=== PATIENT | male | born 1950 | race Caucasian/White ===

== ENCOUNTER 2025-01-22 17:07 | Inpatient (IN) ==
[2025-01-22] MEDS: 0.9 % SODIUM CHLORIDE 2,260 ML IV ONE (17:38)
[2025-01-22 17:47] LABS: Basophils # (Auto) 0.01 K/mcL (0.00-0.30); Basophils % (Auto) 0 % (0.0-2.0); Eosinophils # (Auto) 0 K/mcL (0.00-0.70); Eosinophils % (Auto) 0 % (0.0-7.0); Hematocrit 40.9 % (40.1-51.0); Hemoglobin 13.4 g/dL (13.7-17.5); Lymphocytes # (Auto) 0.66 K/mcL (1.50-4.80); Lymphocytes % (Auto) 3.3 % (15.5-49.0); Mean Corpuscular HGB Conc 32.8 g/dL (31.0-36.0); Monocytes # (Auto) 0.14 K/mcL (0.10-0.90); Monocytes % (Auto) 0.7 % (1.0-12.0); Neutrophils % (Auto) 95.8 % (38.0-78.0); Platelet Count 355 K/mcL (140-440); RBC 4.46 M/mcL (4.63-6.08); WBC 20.3 K/mcL (4.5-11.0)
[2025-01-22] MEDS: cefTRIAXone 2 GM in DEXTROSE 5% IN WATER 50 ML IV ONE (18:05)
[2025-01-22 18:12] LABS: Bacteria,Urine Mod /hpf (0); Bilirubin,Urine Negative (Negative); Color,Urine Yellow; Glucose,Urine (UA) Negative (Negative); Ketones,Urine Negative (Negative); Leukocyte Esterase,Urine Large /uL (Negative); PH,Urine 6.0 (5.0-9.0); Protein,Urine 30 mg/dL (Negative); Specific Gravity,Urine 1.020 (1.000-1.035); Urobilinogen,Urine Normal
[2025-01-22 18:12] LABS: ALT/SGPT 19 U/L (<40); AST/SGOT 23 U/L (<40); Albumin 3.5 gm/dL (3.2-5.2); Albumin/Globulin Ratio 1.1 (1.0-2.3); Alkaline Phosphatase 77 U/L (39-117); Anion Gap 17.0 (8.0-16.0); Bilirubin,Total 0.4 mg/dL (0.1-1.0); Blood Urea Nitrogen 26 mg/dL (8-23); Calcium 8.3 mg/dL (8.6-10.4); Carbon Dioxide 19 mmol/L (22-30); Chloride 101 mmol/L (96-108); Globulin 3.2 gm/dL (2.2-3.7); Glucose 167 mg/dL (70-105); Potassium 3.8 mmol/L (3.3-5.1); Sodium 137 mmol/L (133-145)
[2025-01-22] MEDS: MAGNESIUM SULFATE 2 GM/50 ML BAG IV ONE (18:47)
[2025-01-22] MEDS ORDERED: POLYETHYLENE GLYCOL 3350 17 GM PACKET PO PRN (21:29)
[2025-01-22] MEDS ORDERED: MAGNESIUM SULFATE 2 GM/50 ML BAG IV PRN (21:29)
[2025-01-22] MEDS ORDERED: POTASSIUM CHLORIDE 20 MEQ TABLET PO PRN ×2 (21:29)
[2025-01-22] MEDS ORDERED: SENNOSIDES 1 TABLET PO PRN (21:29)
[2025-01-22] MEDS ORDERED: METOCLOPRAMIDE 10 MG/2 ML VIAL IV PRN (21:29)
[2025-01-22] MEDS ORDERED: POTASSIUM CHLORIDE 40 MEQ in DEXTROSE 5% IN WATER 500 ML IV PRN (21:29)
[2025-01-22] MEDS: 0.9 % SODIUM CHLORIDE 10 ML SYRINGE IV SCH (21:45)
[2025-01-22] MEDS: 0.9 % SODIUM CHLORIDE 1,000 ML IV ONE (22:15)
[2025-01-22] MEDS: ENOXAPARIN 40 MG/0.4 ML SYRINGE SQ SCH (22:20)
[2025-01-22] MEDS: CEFEPIME 1 GM VIAL IV SCH (22:20)
[2025-01-22] MEDS: DOCUSATE SODIUM 100 MG CAPSULE PO SCH (22:20)
[2025-01-23] MEDS: ACETAMINOPHEN 325 MG TABLET PO PRN (02:43)
[2025-01-23 06:47] LABS: Basophils # (Auto) 0.02 K/mcL (0.00-0.30); Basophils % (Auto) 0.1 % (0.0-2.0); Eosinophils # (Auto) 0.04 K/mcL (0.00-0.70); Eosinophils % (Auto) 0.2 % (0.0-7.0); Hematocrit 38.3 % (40.1-51.0); Hemoglobin 12.2 g/dL (13.7-17.5); Lymphocytes # (Auto) 0.95 K/mcL (1.50-4.80); Lymphocytes % (Auto) 4.1 % (15.5-49.0); Mean Corpuscular HGB Conc 31.9 g/dL (31.0-36.0); Monocytes # (Auto) 0.45 K/mcL (0.10-0.90); Monocytes % (Auto) 1.9 % (1.0-12.0); Neutrophils % (Auto) 93.3 % (38.0-78.0); Platelet Count 291 K/mcL (140-440); RBC 4.04 M/mcL (4.63-6.08); WBC 23.4 K/mcL (4.5-11.0)
[2025-01-23 06:59] LABS: ALT/SGPT 14 U/L (<40); AST/SGOT 16 U/L (<40); Albumin 3.0 gm/dL (3.2-5.2); Albumin/Globulin Ratio 1.1 (1.0-2.3); Alkaline Phosphatase 61 U/L (39-117); Anion Gap 14.0 (8.0-16.0); Bilirubin,Direct 0.2 mg/dL (<0.3); Bilirubin,Total 0.4 mg/dL (0.1-1.0); Blood Urea Nitrogen 25 mg/dL (8-23); Calcium 7.8 mg/dL (8.6-10.4); Carbon Dioxide 19 mmol/L (22-30); Chloride 105 mmol/L (96-108); Globulin 2.7 gm/dL (2.2-3.7); Glucose 114 mg/dL (70-105); Phosphorous 3.5 mg/dL (2.5-4.5); Potassium 3.9 mmol/L (3.3-5.1); Sodium 138 mmol/L (133-145); Triglycerides 111 mg/dL (<150); Uric Acid 7.7 mg/dL (2.5-8.0)
[2025-01-23] MEDS: METOPROLOL TARTRATE 25 MG TABLET PO ONE (07:57)
[2025-01-23] MEDS: ONDANSETRON 4 MG/2 ML VIAL IV PRN (08:18)
[2025-01-23] MEDS: IPRATROPIUM/ALBUTEROL 3 ML AMPUL.NEB NEB PRN (08:24)
[2025-01-23] MEDS: METOPROLOL TARTRATE 5 MG/5 ML VIAL IV PRN (09:00)
[2025-01-23] MEDS: SODIUM BICARBONATE 650 MG TABLET PO SCH (09:08)
[2025-01-23] MEDS: LACTATED RINGERS 250 ML IV ONE (10:14)
[2025-01-23] MEDS ORDERED: METOPROLOL TARTRATE 5 MG/5 ML VIAL IV PRN (10:16)
[2025-01-23] MEDS: LACTATED RINGERS 1,000 ML IV SCH (10:32)
[2025-01-23] MEDS: ASPIRIN 81 MG TAB.CHEW PO SCH (11:36)
[2025-01-23] MEDS: FINASTERIDE 5 MG TABLET PO SCH (11:36)
[2025-01-23] MEDS: METOPROLOL TARTRATE 25 MG TABLET PO SCH (20:19)
[2025-01-23] MEDS: ATORVASTATIN 40 MG TABLET PO SCH (20:19)
[2025-01-24 06:41] LABS: Basophils # (Auto) 0.05 K/mcL (0.00-0.30); Basophils % (Auto) 0.2 % (0.0-2.0); Eosinophils # (Auto) 0.26 K/mcL (0.00-0.70); Eosinophils % (Auto) 1.1 % (0.0-7.0); Hematocrit 37.0 % (40.1-51.0); Hemoglobin 11.7 g/dL (13.7-17.5); Lymphocytes # (Auto) 2.52 K/mcL (1.50-4.80); Lymphocytes % (Auto) 10.2 % (15.5-49.0); Mean Corpuscular HGB Conc 31.6 g/dL (31.0-36.0); Monocytes # (Auto) 1.28 K/mcL (0.10-0.90); Monocytes % (Auto) 5.2 % (1.0-12.0); Neutrophils % (Auto) 82.9 % (38.0-78.0); Platelet Count 238 K/mcL (140-440); RBC 3.89 M/mcL (4.63-6.08); WBC 24.7 K/mcL (4.5-11.0)
[2025-01-24 07:00] LABS: ALT/SGPT 19 U/L (<40); AST/SGOT 32 U/L (<40); Albumin 2.9 gm/dL (3.2-5.2); Albumin/Globulin Ratio 1.0 (1.0-2.3); Alkaline Phosphatase 63 U/L (39-117); Anion Gap 16.0 (8.0-16.0); Bilirubin,Direct < 0.2 mg/dL (0-0.3); Bilirubin,Total 0.3 mg/dL (0.1-1.0); Blood Urea Nitrogen 36 mg/dL (8-23); Calcium 7.8 mg/dL (8.6-10.4); Carbon Dioxide 18 mmol/L (22-30); Chloride 104 mmol/L (96-108); Globulin 2.8 gm/dL (2.2-3.7); Glucose 118 mg/dL (70-105); Phosphorous 4.0 mg/dL (2.5-4.5); Potassium 4.2 mmol/L (3.3-5.1); Sodium 138 mmol/L (133-145); Triglycerides 184 mg/dL (<150); Uric Acid 8.3 mg/dL (2.5-8.0)
[2025-01-24 09:26] LABS: RBC Morphology NORMAL (Normal)
[2025-01-24] MEDS: FUROSEMIDE 100 MG/10 ML VIAL IV ONE (09:28)
[2025-01-24] MEDS: ASPIRIN 325 MG ENTERIC COATED TABLET PO ONE (09:28)
[2025-01-24] MEDS: FUROSEMIDE 40 MG/4 ML VIAL IV ONE ×2 (09:41→15:15)
[2025-01-24] MEDS: ASPIRIN 81 MG TAB.CHEW PO SCH (09:47)
[2025-01-24] MEDS: LEVOFLOXACIN 750 MG/150 ML BAG IV SCH (12:10)
[2025-01-25 06:09] LABS: Basophils # (Auto) 0.07 K/mcL (0.00-0.30); Basophils % (Auto) 0.4 % (0.0-2.0); Eosinophils # (Auto) 0.77 K/mcL (0.00-0.70); Eosinophils % (Auto) 4.0 % (0.0-7.0); Hematocrit 40.1 % (40.1-51.0); Hemoglobin 13.2 g/dL (13.7-17.5); Lymphocytes # (Auto) 1.86 K/mcL (1.50-4.80); Lymphocytes % (Auto) 9.8 % (15.5-49.0); Mean Corpuscular HGB Conc 32.9 g/dL (31.0-36.0); Monocytes # (Auto) 1.18 K/mcL (0.10-0.90); Monocytes % (Auto) 6.2 % (1.0-12.0); Neutrophils % (Auto) 79.1 % (38.0-78.0); Platelet Count 286 K/mcL (140-440); RBC 4.34 M/mcL (4.63-6.08); WBC 19.1 K/mcL (4.5-11.0)
[2025-01-25 06:22] LABS: ALT/SGPT 23 U/L (<40); AST/SGOT 37 U/L (<40); Albumin 3.2 gm/dL (3.2-5.2); Albumin/Globulin Ratio 0.9 (1.0-2.3); Alkaline Phosphatase 76 U/L (39-117); Anion Gap 18.0 (8.0-16.0); Bilirubin,Direct < 0.2 mg/dL (0-0.3); Bilirubin,Total 0.4 mg/dL (0.1-1.0); Blood Urea Nitrogen 40 mg/dL (8-23); Calcium 8.7 mg/dL (8.6-10.4); Carbon Dioxide 22 mmol/L (22-30); Chloride 99 mmol/L (96-108); Globulin 3.5 gm/dL (2.2-3.7); Glucose 95 mg/dL (70-105); Phosphorous 3.5 mg/dL (2.5-4.5); Potassium 3.6 mmol/L (3.3-5.1); Sodium 139 mmol/L (133-145); Triglycerides 312 mg/dL (<150); Uric Acid 10.6 mg/dL (2.5-8.0)
[2025-01-25] MEDS: ERTAPENEM 1 GM in 0.9 % SODIUM CHLORIDE 50 ML IV SCH (14:28)
== END 2025-01-25 15:17 | disposition home or self-care (01) | DRG 872 ==
LOC: ED 17:07 → ICU 21:28
PROVIDERS: ADMIT Internal Medicine; ATTEND Internal Medicine